=== PATIENT | male | born 1965 | race Caucasian/White ===

== ENCOUNTER → 2023-11-17 14:24 | Outpatient (REF) | payer BC, SELFPAY | LOC: PAVMRI 14:24 | PROVIDERS: ATTENDING PHYSICIAN Ophthalmology; FAMILY PHYSICIAN Family Medicine | DX: H53.2 Diplopia (principal); H49.11 Fourth [trochlear] nerve palsy, right eye | CPT/HCPCS: 70553; A9575 ==

== ENCOUNTER → 2025-01-30 09:11 | Outpatient (REF) | payer BC, SELFPAY | LOC: HWRAD 09:11 | PROVIDERS: ATTENDING PHYSICIAN Anesthesiology; FAMILY PHYSICIAN Family Medicine | DX: M17.12 Unilateral primary osteoarthritis, left knee (principal) | CPT/HCPCS: 73564 ==

== ENCOUNTER → 2025-02-23 16:03 | Outpatient (REF) | payer BC, SELFPAY | LOC: PAVMRI 16:03 | PROVIDERS: ATTENDING PHYSICIAN Student in an Organized Health Care Education/Training Program; FAMILY PHYSICIAN Family Medicine | DX: S89.92XA Unspecified injury of left lower leg, initial encounter (principal) | CPT/HCPCS: 73721 ==

== ENCOUNTER → 2025-03-20 08:12 | Outpatient (REF) | payer BC, SELFPAY | LOC: HWEVLT 08:12 | PROVIDERS: ATTENDING PHYSICIAN Radiology Vascular & Interventional Radiology | DX: I83.893 Varicose veins of bilateral lower extremities with other complications (principal) | CPT/HCPCS: 93970 ==

== ENCOUNTER 2025-04-11 18:42 | Emergency (ER) | payer BC, SELFPAY ==
[2025-04-11 18:50] VITALS: BP 136/83
[2025-04-11 19:07] LABS: Hematocrit 40.0 % (39.0-52.0); Hemoglobin 12.8 g/dL (13.0-18.0); Mean Corp Hgb Conc. 32.0 g/dL (33.0-37.0); Mean Corpuscular Volume 91.7 fL (80.0-94.0); Nucleated Red Blood Cells % 0 % (-); Platelet Count 322 10^3/uL (130-400); Red Cell Dist. Width 12.9 % (11.5-14.5)
[2025-04-11 19:17] LABS: INR 1.06; PT 13.6 Sec (11.4-14.6)
[2025-04-11 19:29] LABS: ALT (SGPT) 31 U/L (0-50); AST (SGOT) 33 U/L (17-59); Albumin 3.9 g/dl (3.5-5.0); Alkaline Phosphatase 94 U/L (38-126); Blood Urea Nitrogen 9 mg/dl (9-20); Calcium 9.0 mg/dl (8.4-10.2); Carbon Dioxide 31 mmol/L (22-30); Chloride 101 mmol/L (98-107); Glucose 77 mg/dl (70-99); Potassium 3.6 mmol/L (3.5-5.1); Sodium 135 mmol/L (135-145); Total Protein 6.4 g/dl (6.3-8.2); eGFR > 60.00
[2025-04-11 19:41] LABS: Troponin I 0.014 ng/ml
[2025-04-11 21:23] VITALS: BP 130/85
[2025-04-11 22:00] VITALS: BP 128/84
[2025-04-11 22:20] VITALS: BMI 14.1
--- NOTE | 2025-04-11 22:37 | ED.GENMED ---
History of Present Illness
General
Chief Complaint: Chest Pain
Time Seen by Provider: 04/11/25 22:19
History of Present Illness
History of Present Illness:
59-year-old male presents to the emergency department for evaluation of an acute episode of chest pain that began this morning while he was getting dressed. Describes this episode as 'like a ton of bricks sitting on my chest' that resolved rather
rapidly. No associated fevers or chills. Did have some persistent pleuritic pain for several hours after this event but not at present. Was referred to the ED by his primary care physician. Currently denies symptoms, specifically denies fever,
chills, sweats, chest pain, or dyspnea at present
Past History
Past History
ED Past Medical History: Other (History of kidney stones.)
ED Past Surgical History: Other (gastric bypass)
Social History
Tobacco: Non-smoker
Alcohol: None
Drug: None
Personal:
Living: with family
Employment: Employed
Family History
Family History: Other (Noncontributory)
Review of Systems
Review of Systems
Allergies reviewed?: Yes
All Other Systems: ROS reviewed and negative except as documented in HPI and ROS
Phy Exam
Physical Exam
Physical Exam:
GEN: Well appearing, NAD, WDWN
HEENT: Oral mucosa moist, no scleral icterus
Cardiac: Regular rate and rhythm, no murmur
Lung: No respiratory distress, no tachypnea, lungs clear to auscultation bilateral
MSK: No gross deformity or injuries
Skin: Good color, no pallor or jaundice, no rashes
Neuro: AO x3, moves all extremities freely
Psych: Calm, cooperative
Scores
Heart Score for Chest Pain Patients
STEMI patient?: No
History: Slightly or Non-Suspicious
ECG: Normal
Age: >45 - <65 years
Risk Factors: 1 or 2 Risk Factors
Troponin: </= Normal Limit
Heart Score for Chest Pain Patients: 2
Heart Score Risk: 2.5% MACE over next 6 weeks
Course
Orders/Labs/Results
Orders:
Orders
04/11/25 18:49
ECG [Electrocardiogram (*1)] Urgent
Reason for Study: Chest Pain
EKG- Treatment ONCE
04/11/25 19:00
Complete Blood Count/With Diff Urgent
Comprehensive Metabolic Panel Urgent
Prothrombin Time Urgent
Troponin I Urgent
04/11/25 22:00
Electrocardiogram (*1) Urgent
Reason for Study: Chest Pain
EKG- Treatment ONCE
04/11/25 22:39
Troponin I Urgent
Abnormal Lab Results
04/11/25
19:00
RBC 4.36 L 10^6/uL
(4.70-6.10)
Hgb 12.8 L g/dL
(13.0-18.0)
MCHC 32.0 L g/dL
(33.0-37.0)
Monocytes % 10.0 H %
(1.7-9.3)
Carbon Dioxide 31 H mmol/L
(22-30)
04/11/25 19:00
04/11/25 19:00
Vital Signs
Initial and Last Documented VS:
Initial Vital Signs
Temp Pulse Resp BP Pulse Ox
97.9 F 76 18 136/83 99
04/11/25 18:50 04/11/25 18:50 04/11/25 18:50 04/11/25 18:50 04/11/25 18:50
Last Documented Vital Signs
Temp Pulse Resp BP Pulse Ox
97.8 F 72 16 121/86 96
04/11/25 22:27 04/11/25 23:58 04/11/25 23:58 04/11/25 23:58 04/11/25 23:58
MDM/Problems Addressed
MDM/Problems Addressed:
Initial and repeat troponins are negative. Workup is grossly unremarkable, highly unlikely this represents ACS given the abrupt onset and rapid resolution with no persistent symptoms. Doubt PE given normal vital signs and no risk factors for this.
May be musculoskeletal versus GI etiology.
Comment
Comment:
EKG independently interpreted by me shows normal sinus rhythm at a rate of [address] changes
*Pulse Oximetry
SaO2: 96
Oxygen Mode of Delivery: Room air
Patient hypoxic: no
*Critical Care Note
Total Time (30-74mins, 75-104mins- exclusive of procedures): Not Applicable
ED Attending Note
-
Portions of this chart may have been created with voice recognition software.� Occasional wrong word or��sound alike� substitutions may have occurred due to the inherent limitations of voice recognition software.
Discharge Plan
Departure
Patient Disposition: Home (Routine Discharge)
Date of Disposition: 04/11/25
Time of Disposition: 23:25
Patient with high blood pressure during this ER visit?: No
Discharge Problem:
Atypical chest pain
Instructions: Chest Pain That Is Not Caused by the Heart (DC)
Prescriptions:
No Action
tramadol 50 MG tablet
50 mg PO Q6HPRN PRN (Reason: NECK/BACK PAINS)
valsartan-hydrochlorothiazide [Diovan HCT] 1 EACH tablet
1 tab PO DAILY
docusate sodium 100 MG capsule
100 mg PO DAILY
calcium citrate 200 MG tablet
200 mg PO DAILY
Lactobac 2-Bifido 1-S. therm [High Potency Probiotic] 1 CAP capsule
1 cap PO DAILY
multivitamin with folic acid [Tab-A-Hansel] 1 TABLET tablet
1 tab PO DAILY
acetaminophen 325 MG tablet
650 mg PO Q4HPRN PRN (Reason: mild pain) 0RF
cyanocobalamin (vitamin B-12) 1,000 MCG tablet
1,000 mcg PO DAILY 0RF
pantoprazole 40 MG tablet,delayed release (DR/EC)
40 mg PO DAILY 0RF
tamsulosin [Flomax] 0.4 mg capsule
0.4 mg PO DAILY Qty: 30 0RF
oxycodone-acetaminophen [Percocet] 5-325 mg tablet
1 - 2 tab PO Q6H PRN (Reason: Pain) Qty: 14 0RF
Referrals:
Pipo Rios DO [Family Provider, Family Practice]
Interventions
Interventions:
*Risk Screen - Suicide Last Done: 04/11/25 18:50
*General Assessment Last Done: 04/11/25 18:50
*Neglect/Abuse Screening Last Done: 04/11/25 22:21
*ED COVID-19 Vaccine History Last Done: 04/11/25 22:21
*ED Influenza Vaccine History Last Done: 04/11/25 22:21
[facility] Fall Risk Assessment Tool Last Done: 04/11/25 22:21
*Nursing Disposition Last Done: 04/11/25 23:58
ED- Cardiac Assessment Last Done: 04/11/25 22:21
Discharge Date and Time
Discharge Date/Time: 04/11/25 23:59
Print Language: [id number]
[2025-04-11 23:00] VITALS: BP 121/86
[2025-04-11 23:11] LABS: Troponin I < 0.012 ng/ml
[2025-04-11 23:58] VITALS: BP 121/86
== END 2025-04-11 23:59 | disposition home or self-care (01) ==
LOC: EMR 18:42
PROVIDERS: Emergency Medicine; EMERGENCY PHYSICIAN Emergency Medicine; FAMILY PHYSICIAN Family Medicine; REFERRING PHYSICIAN Internal Medicine Cardiovascular Disease
DX: R07.89 Other chest pain (principal); Z98.84 Bariatric surgery status
CPT/HCPCS: 99284; 80053; 84484; 85025; 85610; 93005